=== PATIENT | male | born 1990 | race Caucasian/White ===

== ENCOUNTER 2021-11-08 16:20 | Emergency (ER) | payer OTHER ==
[2021-11-08] MEDS ORDERED: NAPROXEN500 MG PO (16:56)
[2021-11-08] MEDS ORDERED: PENVEE K 500 M500 MG PO (16:56)
== END 2021-11-08 17:18 | disposition home or self-care (01) ==
LOC: ER1 16:20
DX: H92.01 Otalgia, right ear (principal); K02.9 Dental caries, unspecified; J45.909 Unspecified asthma, uncomplicated
CPT/HCPCS: 99282

== ENCOUNTER 2022-01-05 18:19 | Emergency (ER) | payer SELFPAY ==
[~2022-01-05 18:19] MED LIST: NAPROXEN500 MG PO; PENVEE K 500 M500 MG PO
== END 2022-01-05 21:25 | disposition home or self-care (01) ==
LOC: ER1 18:19
DX: S62.636A Displaced fracture of distal phalanx of right little finger, initial encounter for closed fracture (principal); S61.316A Laceration without foreign body of right little finger with damage to nail, initial encounter; F17.220 Nicotine dependence, chewing tobacco, uncomplicated; W23.0XXA Caught, crushed, jammed, or pinched between moving objects, initial encounter; Y92.89 Other specified places as the place of occurrence of the external cause; Y99.0 Civilian activity done for income or pay
CPT/HCPCS: 11760; 73140; 99283